=== PATIENT | female | born 1980 | race Caucasian/White ===

== ENCOUNTER 2017-04-09 08:51 | Emergency (ER) | payer BC ==
[2017-04-09] MEDS ORDERED: HYDROcodone/ACETAMIN 5-325 MG* 1 TAB PO ONE (10:28)
[2017-04-09] MEDS ORDERED: Ondansetron ODT TAB* 4 MG PO ONE (10:28)
--- NOTE | 2017-04-09 10:29 | UC ---
Shoulder Pain HPI - HPI Summary HPI Summary: felt like right shoulder dislocated in her sleep and is now having pain with limited ROM - History of Current Complaint Chief Complaint: UCUpperExtremity Stated Complaint: RIGHT SHOULDER PAIN Time Seen by Provider: 04/09/17 10:22 Hx Obtained From: Patient Hx Last Menstrual Period: 04/07/17 ?: No Onset/Duration: Sudden Onset, Lasting Days, Still Present Timing: Constant Severity Initially: Moderate Severity Currently: Moderate Location Of Pain: Is Discrete @ - Right shoulder (posterior pain is worse than anterior pain) Character: Aching, Throbbing Aggravating Factor(s): Movement Alleviating Factor(s): Nothing Associated Signs And Symptoms: Positive: Negative Related History: Dominant Hand Right - Allergies/Home Medications Allergies/Adverse Reactions: Allergies Allergy/AdvReac Type Severity Reaction Status Date / Time Adhesive Tape Allergy Rash Verified 04/09/17 09:06 Home Medications: Home Medications Duloxetine HCl 1 tab PO DAILY 04/09/17 [History Confirmed 04/09/17] PMH/Surg Hx/FS Hx/Imm Hx Previously Healthy: No - Fibromyalgia, degenerative menescus GI/ History: Gastroesophageal Reflux Psychological History: Anxiety, Other - Chronic pain Other Psychological History: Chronic pain - Surgical History Surgical History: Yes Surgery Procedure, Year, and Place: 4 RT KNEE SURGERIES MOST RECENT 2010, BRONCHOSCOPY 2003, SINUS SURGERY 08/2015 - Family History Known Family History: Positive: None - Social History Occupation: Employed Full-time Lives: With Family Alcohol Use: Occasionally Substance Use Type: None Smoking Status (MU): Never Smoked Tobacco - Immunization History Most Recent Influenza Vaccination: NOT UTD Review of Systems Constitutional: Negative Skin: Negative Eyes: Negative ENT: Negative Respiratory: Negative Cardiovascular: Negative Gastrointestinal: Negative Genitourinary: Negative Motor: Decreased ROM, Weakness Neurovascular: Negative Musculoskeletal: Arthralgia - right shoulder Neurological: Negative Psychological: Negative Is Patient Immunocompromised?: No All Other Systems Reviewed And Are Negative: Yes Physical Exam Triage Information Reviewed: Yes Appearance: Well-Appearing, No Pain Distress, Well-Nourished Vital Signs: Initial Vital Signs Temp 97.9 F 04/09/17 09:00 Pulse 89 04/09/17 09:00 Resp 18 04/09/17 09:00 BP 137/74 04/09/17 09:00 Pulse Ox 100 04/09/17 09:00 Vital Signs Reviewed: Yes Eye Exam: Normal Eyes: Positive: Conjunctiva Clear ENT Exam: Normal ENT: Positive: Normal ENT inspection, Hearing grossly normal. Negative: Nasal drainage, Tonsillar swelling, Trismus, Muffled voice, Hoarse voice, Sinus tenderness Dental Exam: Normal Neck exam: Normal Neck: Positive: Supple, Nontender Respiratory Exam: Normal Respiratory: Positive: Chest non-tender, Lungs clear, Normal breath sounds, No respiratory distress, No accessory muscle use Cardiovascular Exam: Normal Cardiovascular: Positive: RRR, No Murmur, Pulses Normal, Brisk Capillary Refill Musculoskeletal Exam: Normal Musculoskeletal: Positive: Strength Intact Neurological Exam: Normal Neurological: Positive: Alert, Muscle Tone Normal Psychological Exam: Normal Psychological: Positive: Normal Response To Family, Age Appropriate Behavior Skin Exam: Normal Diagnostics - Radiology No standard instances Xray Interpretation: No Acute Changes Radiology Interpretation Completed By: ED Physician, Radiologist Shoulder Course/Dx - Course Assessment/Plan: pain med as rx, zofran sling follow with Dr. Maurer this week - Differential Dx/Diagnosis Provider Diagnoses: right shoulder pain Discharge - Discharge Plan Condition: Stable Disposition: HOME Prescriptions: Ondansetron ODT TAB* [Zofran 4 MG Odt TAB*] 4 mg PO Q6H PRN #12 tab.odt PRN Reason: nausea/vomiting Patient Education Materials: Shoulder Pain (ED) Forms: *Work Release Referrals: Ciaran Capps MD [Medical Doctor] - 3 Days
--- NOTE | 2017-04-09 11:00 | RAD ---
INDICATION: Right shoulder pain COMPARISON: None TECHNIQUE: Routine frontal, Y and axial views were obtained. FINDINGS: The bony structures, joint spaces, and soft tissues are normal for age. IMPRESSION: NEGATIVE EXAMINATION
[2017-04-09 12:18] VITALS: BP 125/91
== END 2017-04-09 12:01 | disposition home or self-care (01) ==
LOC: UCEAST 08:51
DX: M25.511 Pain in right shoulder (principal); M79.7 Fibromyalgia; F41.9 Anxiety disorder, unspecified
CPT/HCPCS: 99213; A9270-GY; G0463

== ENCOUNTER 2018-09-26 01:37 | Emergency (ER) | payer BC ==
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
[2018-09-26 03:06] VITALS: BP 136/103
== END 2018-09-26 03:05 | disposition home or self-care (01) ==
LOC: ED 01:37
DX: S05.11XA Contusion of eyeball and orbital tissues, right eye, initial encounter (principal); Y04.8XXA Assault by other bodily force, initial encounter; Y92.009 Unspecified place in unspecified non-institutional (private) residence as the place of occurrence of the external cause; Y07.01 Husband, perpetrator of maltreatment and neglect; M81.8 Other osteoporosis without current pathological fracture
CPT/HCPCS: 36415; 86703; 99282

== ENCOUNTER 2018-09-28 15:48 | Emergency (ER) | payer BC ==
[2018-09-28 16:11] VITALS: BP 139/90
[2018-09-28] MEDS ORDERED: HYDROcodone/ACETAMIN 5-325 MG* 1 TAB PO ONE (16:24)
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
[2018-09-28] MEDS ORDERED: Naproxen TAB* 250 MG PO ONE (16:34)
== END 2018-09-28 16:49 | disposition home or self-care (01) ==
LOC: UCEAST 15:48
DX: S06.9X0A Unspecified intracranial injury without loss of consciousness, initial encounter (principal); S00.11XA Contusion of right eyelid and periocular area, initial encounter; Y04.2XXA Assault by strike against or bumped into by another person, initial encounter; Y07.01 Husband, perpetrator of maltreatment and neglect; Y92.9 Unspecified place or not applicable
CPT/HCPCS: 99212; A9270-GY; G0463

== ENCOUNTER 2018-09-28 18:42 | Emergency (ER) | payer BC ==
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
[2018-09-28 21:45] VITALS: BP 135/98
== END 2018-09-28 21:44 | disposition home or self-care (01) ==
LOC: ED 18:42
DX: S09.93XA Unspecified injury of face, initial encounter (principal); Y04.8XXA Assault by other bodily force, initial encounter; Y07.01 Husband, perpetrator of maltreatment and neglect; R51 Headache
CPT/HCPCS: 36415; 70450; 70486; 84702; 99282